=== PATIENT | male | born 1955 | race Caucasian/White ===

== ENCOUNTER → 2023-09-26 | Outpatient (CLI) | payer MEDICARE, OTHER, SELFPAY ==
--- NOTE | 2023-09-26 | KNEE_PTH ---
PATHOLOGY RESULTS PATIENT: AGA SHEPHERD [facility] U#:[id number] AGE/SX: 68/M ROOM: RE09/26/[address]: Dr. Kaveh Ayoub DO : 1955 BED: DIS: 09/26/2023 SPEC #: [id number] RECD: 09/27/23 09:09 STATUS: TIFFANY RESheldon #: [id number] LING: 09/26/23 00:[address]: Kaveh Ayoub DEPT: SURGICAL PATHOLOGY RECD BY: Carlos Villaseñor ENTERED: 09/27/23 09:10 SP TYPE: TOTAL KNEE OTHR DR: RAKESH Tissues: Knee, NOS Procedures: Decalcification bone/plaque Surgery Specimen Level IV HEADER OPERATION: Right robotic assisted total knee arthroplasty PRE-OP DIAGNOSIS: Unilateral primary osteoarthritis right knee TISSUE SUBMITTED: Right knee bone and soft tissue MICROSCOPIC DIAGNOSIS Bone and tissue of right knee, total knee resection: Severe degenerative joint disease. Mild synovial hyperplasia. AM:sonu 10/03/2023 MICROSCOPIC DESCRIPTION Slides are reviewed. GROSS DESCRIPTION Received is one container designated bone and soft tissue right knee. The specimen consists of multiple fragments of connolly-yellow bone measuring in aggregate 16.0 x 12.0 x 2.0 cm. Also in the specimen container are multiple fragments of yellow-white soft tissue measuring in aggregate 10.0 x 9.5 x 1.5 cm. A number of bony fragments contain articular surfaces consistent with tibial plateau and femoral condyle and displaying prominent osteophyte formation, eburnation and bone erosion. Frozen [employer] sections are submitted in two cassettes as follows: 1 - soft tissue, 2 - bone after decalcification. / AM:sonu 09/27/2023 TC:5 CPT: 30565, 02792
== END | disposition home or self-care (01) ==
LOC: LABSPEC 16:19
PROVIDERS: Referring Provider Orthopaedic Surgery; Visit Provider Orthopaedic Surgery
DX: M17.11 Unilateral primary osteoarthritis, right knee (principal)
CPT/HCPCS: 88305; 88311